=== PATIENT | female | born 1995 | race Two or more races ===

== ENCOUNTER 2018-10-09 12:43 | Emergency (ER) | payer OTHER ==
[~2018-10-09] VITALS: Ht 162.6 cm; Wt 52.2 kg
[2018-10-09 13:13] VITALS: BP 118/78
[2018-10-09 13:55] LABS: Urine Bacteria MOD /hpf (None Seen); Urine Blood Negative /uL (Negative); Urine Mucus FEW (None Seen); Urine Specific Gravity 1.017 (1.001-1.035); Urine WBC 13 /hpf (0 - 5)
== END 2018-10-09 17:05 | disposition home or self-care (01) ==
LOC: ER 12:43
DX: J20.9 Acute bronchitis, unspecified (principal); N39.0 Urinary tract infection, site not specified; Z32.02 Encounter for pregnancy test, result negative
CPT/HCPCS: 71046; 81001; 81025

== ENCOUNTER 2018-10-20 10:37 | Emergency (ER) | payer OTHER ==
[~2018-10-20] VITALS: Ht 162.6 cm; Wt 68.0 kg
[2018-10-20 10:43] VITALS: BP 126/85
== END 2018-10-20 17:28 | disposition home or self-care (01) ==
LOC: ER 10:37
DX: N39.0 Urinary tract infection, site not specified (principal)
CPT/HCPCS: 74176; 81002; 81025